=== PATIENT | male | born 1950 | race African-American/Black ===

== ENCOUNTER → 2017-05-06 | Outpatient (CLI) | payer OTHER ==
--- NOTE | 2017-05-10 07:16 | MRI ---
MRI right knee without contrast Indication: Chronic right knee pain and swelling Technique: Multiplanar, multi sequence imaging of the right knee without IV contrast administration. Findings: The extensor mechanism is intact. The patellofemoral compartment demonstrates high-grade di ffuse chondral thinning however there is no full-thickness chondral loss or subchondral bone marrow e georgette identified. The patella remains in satisfactory position within the femoral trochlea. The medial lateral retinacular complexes are intact. There is a large joint effusion with severe synovitis. The re is a large popliteal cyst also containing synovitis and debris. The pes anserine tendons are intac t. The popliteus muscle demonstrates mild edema consistent with Paul low-grade chronic strain. The artifact related to motion significantly limits evaluation of the femorotibial compartments. The lateral femorotibial compartment demonstrates moderate chondral thinning without definite full-thickn ess chondral loss. There are small osteophytes suspected. The medial femorotibial compartment demonst rates high-grade chondral thinning with focal full-thickness cartilage loss within the posterior aspe ct of the femoral condyle with moderate subchondral bone marrow edema seen on sagittal image 19 there is also mild subchondral bone marrow edema within the medial tibial plateau with small surface osteo phytes present. Cruciate ligaments are intact. The superficial MCL and fibular collateral ligament are grossly intact however again limited given motion artifact. Iliotibial band and biceps femoris are grossly intact a s well. All there is tear of the central free edge and posterior horn of the medial meniscus. The lat eral meniscus demonstrates mild central free edge fraying of the meniscal body without definite tear. Impression: 1.Limited evaluation secondary to motion artifact throughout the examination. 2. 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 3. Large suprapatellar joint effusion with severe synovitis, this can be seen in the setting of chron ic osteoarthrosis/secondary osteochondromatosis; however inflammatory arthropathy or proliferative sy novial processes are considerations. There are no definite secondary findings to suggest septic arthr itis; however given the degree of joint effusion and synovitis clinical correlation and if warranted joint aspiration can be performed for exclusion. 4. Large popliteal fossa cyst with synovitis and debris. 5. Degenerative tear of the central free edge and posterior horn of the medial meniscus 6. Suspected degenerative fraying without definite tear of the central free edge of the lateral menis jennie body. 7. Mild increased fluid signal within the popliteus muscle consistent with a low-grade, chronic strai n. Reported By:
== END ==
LOC: RAD 10:02
PROVIDERS: ATTEND Internal Medicine
DX: M25.561 Pain in right knee (principal)
CPT/HCPCS: 73721